=== PATIENT | male | born 1955 | race Caucasian/White ===

== ENCOUNTER → 2016-09-02 | Outpatient (CLI) | payer BC ==
[2016-09-02 16:01] LABS: Creatine Kinase MB 0.5 ng/mL (0.0-2.4); Troponin I <0.012 ng/mL (0.000-0.034)
== END | disposition home or self-care (01) ==
LOC: LABWHC1 15:05
PROVIDERS: ATTEND Physician Assistant
DX: M54.2 Cervicalgia (principal)
CPT/HCPCS: 36415; 82550; 82553; 84484

== ENCOUNTER 2016-10-06 09:53 | Day surgery (SDC) | payer BC ==
[~2016-10-06 09:53] MED LIST: SODIUM CHLORIDE 0.9% 1,000 ML IV SCH
[2016-10-06 11:02] VITALS: BP 151/75; PULSE 66; RESP 16; TEMP 98
--- NOTE | 2016-10-06 15:31 | P.PCN ---
Preoperative Diagnosis: Twelve-lead ECG report Sinus bradycardia at 46 beats a minute, mildly prolonged WI interval, incomplete right bundle branch block with a narrow QRS no ST segment abnormalities normal QT interval Tilt table test procedure Baseline blood pressure 145/77 mmHg heart rate in the 50s patient was tilted upright at an angle of 70 per protocol and there was no change in his heart rate and blood pressure no evidence for neurocardiogenic syncope or dysautonomia Impression Normal heart rate and blood pressure response to upright tilting Postoperative Diagnosis: Procedure(s) Performed: Implants: Anesthesia: none Indications for Procedure: Operative Findings: Description of Procedure:
== END 2016-10-06 15:12 | disposition home or self-care (01) ==
LOC: CATHEP 09:53
PROVIDERS: ATTEND Internal Medicine Clinical Cardiac Electrophysiology
DX: I45.19 Other right bundle-branch block (principal); R00.1 Bradycardia, unspecified; G90.3 Multi-system degeneration of the autonomic nervous system; I10 Essential (primary) hypertension; E78.5 Hyperlipidemia, unspecified; Z82.49 Family history of ischemic heart disease and other diseases of the circulatory system; Z87.891 Personal history of nicotine dependence; Z79.82 Long term (current) use of aspirin; Z79.899 Other long term (current) drug therapy

== ENCOUNTER → 2018-01-26 | Outpatient (CLI) | payer BC | END | disposition home or self-care (01) | LOC: LABWHC1 14:56 | PROVIDERS: ATTEND Nurse Practitioner Adult Health | DX: E78.5 Hyperlipidemia, unspecified (principal) | CPT/HCPCS: 36415; 83721 ==

== ENCOUNTER → 2022-08-22 | Outpatient (CLI) | payer MEDICARE ==
[2022-08-22 16:35] LABS: ALT 34 U/L (10-49); AST 26 U/L (14-35); BUN/Creat Ratio 20.15 Ratio (12.00-20.00); Blood Urea Nitrogen 26.2 mg/dL (9.0-27.0); Calcium 10.2 mg/dL (8.7-10.3); Carbon Dioxide 28.2 mmol/L (21.6-31.8); Chloride 100 mmol/L (96-109); Chol/HDL Ratio 3.68 Ratio; Glucose 123 mg/dL (70-110); LDL Cholesterol,Calculated 66.6 mg/dL (0.0-131.0); Potassium 4.4 mmol/L (3.5-5.5); Sodium 140 mmol/L (135-145)
== END | disposition home or self-care (01) ==
LOC: LABWHC1 09:12
PROVIDERS: ATTEND Internal Medicine Interventional Cardiology
DX: N18.9 Chronic kidney disease, unspecified (principal); E78.2 Mixed hyperlipidemia
CPT/HCPCS: 36415; 80048; 80061; 84450; 84460

== ENCOUNTER → 2023-08-31 | Outpatient (CLI) | payer MEDICARE ==
[2023-08-31 15:59] LABS: ALT 20 U/L (10-49); AST 20 U/L (14-35); Albumin 4.5 g/dL (3.8-4.9); Albumin/Globulin Ratio 2.05 Ratio (1.60-3.17); Alkaline Phosphatase 93 U/L (41-126); Bilirubin, Conjugated <0.20 mg/dL (0.20-0.40); Bilirubin,Unconjugated >0.20 mg/dL (0.20-1.00); Globulin 2.2 g/dL (1.6-3.3); Total Bilirubin 0.4 mg/dL (0.3-1.2); Total Protein 6.7 g/dL (6.2-8.2)
--- NOTE | 2023-09-01 22:01 | CT ---
EXAMINATION TYPE: CT chest wo con DATE OF EXAM: 08/31/2023 COMPARISON: None HISTORY: recently diagnosed with kidney ca CT DLP: 526.60 mGycm, Automated exposure control for dose reduction was used. CONTRAST: Performed injected with 0 mL of Isovue 300. TECHNIQUE: Axial images were obtained at 5 mm thick sections. Reconstructed images are reviewed on [email or web address] computer in the coronal plane. FINDINGS: Portion of the thyroid visualized is normal. Spiculated densities are in the right apex, series 4 image 14. This extends towards the left suprahil ar region. Some irregular pleural thickening may be in the posterior medial right upper lung field. S eries 4 image 30. This may be adjacent to some pleural calcification at this level No enlarged mediastinal or hilar adenopathy is evident. The ascending aorta diameter at the level o f the main pulmonary artery is 3.8 cm. The main pulmonary artery diameter at the bifurcation is 2.9 cm. Coronary artery calcifications present. Limited CT sections are obtained through the upper abdomen. Appears to be marked hydronephrosis of th e superior portion left kidney. Patient's reported renal cancer is not identified within the field-of -view. No suspicious expansile osseous lesions are evident. IMPRESSION: 1. There are couple of linear spiculated densities at the left apex and some irregular pleural increa sed markings in the posterior right upper lung field. Findings are nonspecific. Early metastasis coto jonathan is not excluded.
== END | disposition home or self-care (01) ==
LOC: RADCTMAIN 09:03
PROVIDERS: ATTEND Urology
DX: C68.9 Malignant neoplasm of urinary organ, unspecified (principal)
CPT/HCPCS: 71250; 80076

== ENCOUNTER → 2023-09-10 | Outpatient (CLI) | payer MEDICARE ==
--- NOTE | 2023-09-14 18:10 | PE ---
EXAMINATION TYPE: PET CT fusion skull to thigh DATE OF EXAM: 09/10/2023 COMPARISON: CT chest 08/31/2023 Prior PET/CT: None this location HISTORY: Bladder cancer TECHNIQUE: Following the intravenous administration of 10.23 mCi of F-18 FDG, whole body images are performed from the skull base to the midthigh. Images are reviewed on the computer in the coronal, a xial, and sagittal planes. Reconstructed rotating images are created on independent workstation and reviewed on the computer. A localization and attenuation correction CT is performed in conjunction with the PET scan. DLP: 909.77 mGycm SCAN: Initial Blood glucose: 109 mg/dL Average Mediastinum SUV: 3.01 Average Liver SUV: 3.42 FINDINGS: NECK: No suspicious uptake THORAX: No abnormal uptake ABDOMEN: There is a focus of uptake in the periaortic region, image 168, SUV 19.86. This does not aurelia ear to correlate with the dilated ureter and may be a metastatic lymph node. PELVIS: May be a left iliac chain lymph node image 216, SUV 9.48. Some uptake is within the distal le ft ureter. Excretion not clearly identified. A metastatic lesion within the distal ureter could be co nsidered. This may be normal radiotracer from excretion. Urinary bladder fills normally with excreted radiotracer. No filling defect is identified. OSSEOUS STRUCTURES: There may be some mild uptake along the left C2-3 facets. This could be inflammat ory. SUV 6.6, image 35. LOCALIZATION CT: Prostate may have mild prominence. Mild diffuse wall thickening smooth urinary bladd er. COMPARISON: The linear areas of uptake within the lung apices do not have elevated radiotracer. Size however somewhat small in early metastasis may not have sufficient radiotracer. Monitoring is recomme nded IMPRESSION: 1. There is a focus of radiotracer within the periaortic region suspected to be a metastatic lymph no de. 2. Additional focus of uptake may be within the distal left ureter. Normal excretion however could no t be excluded but may be less likely given delayed excretion on the left. 3. Linear areas within the lung apices not suspicious based on the PET/CT. However, early neoplasm wo uld be difficult to exclude an monitoring is recommended. #4 left iliac chain metastatic lymph node n ot excluded
== END | disposition home or self-care (01) ==
LOC: RADPETMAIN 12:11
PROVIDERS: ATTEND Urology
DX: C67.9 Malignant neoplasm of bladder, unspecified (principal)
CPT/HCPCS: 78815; A9552

== ENCOUNTER 2023-10-12 13:05 | Day surgery (SDC) | payer MEDICARE ==
[~2023-10-12 13:05] MED LIST changes: +HEPARIN SODIUM 1,000 UN/ML (10ML VL) ONE; +HEPARIN SODIUM,PORCINE 10,000 UNIT/ML 1 ML VIAL ONE; +LIDOCAINE 1% INJ 10MG/ML (20 ML MDV) ONE; +MIDAZOLAM 2 MG/2 ML VIAL ONE; +SODIUM CHLORIDE 0.9% 1,000 ML BAG ONE; -SODIUM CHLORIDE 0.9% 1,000 ML IV SCH; +VERAPAMIL 2.5 MG/ML 2 ML AMP ONE
[2023-10-12] MEDS: IOPAMIDOL-370 200ML BTL INJ ONE (13:14)
--- NOTE | 2023-11-09 10:46 | CC ---
CARDIAC CATHETERIZATION REPORT PROCEDURES PERFORMED: 1. Selective right and left coronary angiogram. 2. Left heart catheterization. 3. Ultrasound-guided access to the right radial artery. INDICATION: Chest discomfort, concerning for angina. COMPLICATIONS: None. LEVEL OF SEDATION: Moderate, with sedation length of 10 minutes. 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 The right radial artery was cannulated using micropuncture technique under ultrasound guidance. The micropuncture wire passed easily, then I placed a 6-Indonesian 11 cm sheath at the right radial artery. After that, we gave the patient 2 mg of verapamil intra- arterial and 5000 units of heparin intravenous. Selective right and left coronary angiogram performed using JR4 and JL3.5 catheter and left heart catheterization was performed using 5-Indonesian pigtail catheter. The procedure was completed with no complication. SELECTIVE CORONARY ANGIOGRAM: 1. The right coronary artery is a large-caliber vessel and is a dominant vessel with mild to moderate disease only. 2. The left main has mild disease only and calcified left main. 3. The left circumflex is a large caliber vessel, nondominant vessel and appeared to be angiographically normal. 4. The LAD has mild disease only. Otherwise, no high-grade stenosis was identified. CONCLUSION: 1. Vyvc-ie-xliuroem nonobstructive coronary artery disease. 2. Calcified right and left coronary system. 3. Normal left-sided filling pressure. POSTPROCEDURE MANAGEMENT: Medical treatment and follow up with the patient. MMODL / IJN: [id number] /
== END 2023-10-12 16:54 | disposition home or self-care (01) ==
LOC: CATHCVL 13:05
PROVIDERS: ATTEND Internal Medicine Interventional Cardiology
DX: R06.02 Shortness of breath
CPT/HCPCS: 93458

== ENCOUNTER → 2024-01-14 | Outpatient (CLI) | payer MEDICARE ==
--- NOTE | 2024-01-15 15:13 | PE ---
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 Images are reviewed on the computer in the coronal, a xial, and sagittal planes. Reconstructed rotating images are created on independent workstation and reviewed on the computer. A non-contrast CT is performed in conjunction with the PET scan. Glucose level 137 mg/dL CT DLP: 1049.63 mGycm, Automated exposure control for dose reduction was used. COMPARISON: CT 08/31/2023, PET/CT 09/10/2023, MRI: None FINDINGS: Mediastinal SUV mean is 2.8. Hepatic parenchyma SUV mean is 3.7. SKULL BASE AND NECK: No suspicious radiotracer activity. CHEST, MEDIASTINUM, AND HILAR REGION: No suspicious radiotracer activity. ABDOMEN AND PELVIS: Mildly decreased size of left iliac chain lymph node measuring 1.6 cm, previously measured up to 2.1 cm. The measures maximum SUV of 11.0, previously 14.3. Decreased size of spiculated metastatic soft tissue lesion within the right lower quadrant mesentery measuring 2.1 cm, previously measured up to 2.6 cm. Demonstrated a max SUV of 3.0, previously 13.0. Decreased size of left para-aortic lymph node measuring now 1.0 cm, previously 1.6 cm. Demonstrated m aximum SUV of 2.5, previously 23.7. Previously seen focal FDG uptake within the distal left ureter has decreased now with a maximum SUV o f 4.1, previously 17.3. MUSCULOSKELETAL STRUCTURES: No suspicious radiotracer activity. Diffuse osseous uptake likely related to posttreatment change. OTHER CT: Bilateral aphakia. Bilateral carotid bulb calcifications. Retropharyngeal course of the luz ateral common carotid arteries. Mild atherosclerotic calcification of the aorta and its branches. Mil d coronary arterial calcifications. Minimal bilateral gynecomastia with right greater than left. Subc entimeter hyperdense focus within the left hepatic dome which is too small characterize but likely re presents a cyst. Similar severe left hydroureteronephrosis without obstructing calculus identified. C oarse prostate calcifications. Couple of sigmoid diverticula without evidence for acute diverticuliti s. Multilevel degenerative changes of visualized spine. Pseudoarticulation of the left L5 transverse process with the sacrum. Levoscoliotic curvature of the thoracolumbar spine. Stable linear scarring w ithin the right lung apex. Additional stable subpleural atelectasis versus scarring within the right lower lobe. IMPRESSION: Positive response to therapy with decreased size and FDG activity of periaortic and left iliac lymph nodes. Decreased size and FDG activity of right lower quadrant mesenteric metastatic soft tissue lesi on. Additionally there is decreased FDG activity within the distal left ureter as suspected ureteral cancer. No new sites of suspicious FDG activity. [facility], , 01/15/2024 3:10 PM
== END | disposition home or self-care (01) ==
LOC: RADPETMAIN 08:53
PROVIDERS: ATTEND Internal Medicine Hematology & Oncology
DX: C66.2 Malignant neoplasm of left ureter (principal); H27.03 Aphakia, bilateral; I70.0 Atherosclerosis of aorta
CPT/HCPCS: 78815; A9552

== ENCOUNTER → 2024-05-26 | Outpatient (CLI) | payer MEDICARE ==
--- NOTE | 2024-05-28 15:12 | PE ---
EXAMINATION TYPE: PET CT fusion skull to thigh DATE OF EXAM: 05/26/2024 CLINICAL INDICATION:Male, 68 years old with history of C66.2 Bladder ca; TECHNIQUE: Following the intravenous administration of 11.54 mCi of F-18 FDG, whole body images are performed from the skull base to the midthigh. Images are reviewed on the computer in the coronal, axial, and sagittal planes. Reconstructed rotating images are created on independent workstation and reviewed on the computer. A non-contrast CT is performed in conjunction with the PET scan. Glucose level 125 mg/dL CT DLP: 883.13 mGycm, Automated exposure control for dose reduction was used. COMPARISON: CT 08/31/2023, PET/CT 01/14/2024, 09/10/2023, MRI: None FINDINGS: Mediastinal SUV mean is 2.6. Hepatic parenchyma SUV mean is 3.3. SKULL BASE AND NECK: No suspicious radiotracer activity. CHEST, MEDIASTINUM, AND HILAR REGION: No suspicious radiotracer activity. ABDOMEN AND PELVIS: Increase size of left periaortic lymph node measuring 1.2 cm. This now demonstrates FDG activity with a maximum SUV of 15.0. Previously measured 1.0 cm with a maximum SUV of 2.5. Postsurgical changes from left nephrectomy with low-level FDG activity in the surgical bed with a max SUV of 4.6. Post surgical changes of the bowel from right hemicolectomy. Post surgical changes of previously demonstrated right lower quadrant soft tissue mass which is no lo nger visualized. No suspicious FDG activity in this region above background. Mild FDG activity along the anterior midline abdominal wall incision site likely related to inflammat ion. Demonstrates a max SUV of 6.4 which is most pronounced along the inferior aspect. Redemonstration of left iliac chain lymph node measuring 1.6 cm with decreased FDG activity now measu ring 6.0. Previously 11.0, 14.3. MUSCULOSKELETAL STRUCTURES: No suspicious radiotracer activity. OTHER CT: Bilateral aphakia. Bilateral carotid bulb calcifications. Retropharyngeal course of the luz ateral common carotid arteries. Mild atherosclerotic calcification of the aorta and its branches. Mil d coronary arterial calcifications. Minimal bilateral gynecomastia with right greater than left. Stab le linear scarring within the right apex. Subcentimeter hypodense focus within the left hepatic dome which is too small characterize but likely represents a cyst. Left hepatic lobe dome 1.7 cm cyst. Pos t surgical changes from left nephrectomy with some residual stranding and fluid. Surgical changes of the colon from right hemicolectomy with anastomosis identified. Some residual stranding identified wi thin the surrounding mesentery. Coarse prostate calcifications. Couple of sigmoid diverticula without evidence for acute diverticulitis. Multilevel degenerative changes of visualized spine. Pseudoarticu lation of the left L5 transverse process with the sacrum. Levoscoliotic curvature of the thoracolumba r spine. Postsurgical changes in the midline anterior abdominal wall with scarring. IMPRESSION: 1. Postsurgical changes with only mild FDG activity in the surgical bed likely related to postsurgic al change, however there is mild increased size of left periaortic lymph node now demonstrating suspi cious FDG activity highly concerning for residual disease/metastasis. 2. Decreased FDG activity within the mildly enlarged left iliac chain lymph node. [facility], , 05/28/2024 3:09 PM
== END | disposition home or self-care (01) ==
LOC: RADPETMAIN 08:26
PROVIDERS: ATTEND Internal Medicine Hematology & Oncology
DX: C66.2 Malignant neoplasm of left ureter (principal); R59.9 Enlarged lymph nodes, unspecified; Z98.890 Other specified postprocedural states
CPT/HCPCS: 78815; A9552

== ENCOUNTER → 2024-06-10 | Day surgery (SDC) | payer MEDICARE ==
[~2024-06-10] MED LIST changes: +GLYCOPYRROLATE 0.2 MG/ML 2 ML VIAL ONE; -HEPARIN SODIUM 1,000 UN/ML (10ML VL) ONE; -HEPARIN SODIUM,PORCINE 10,000 UNIT/ML 1 ML VIAL ONE; +HYDROmorphone 0.5 MG/0.5 ML SYRINGE IVP PRN; +KETAMINE HCL IN 0.9 % NACL 50 MG/5 ML SYRINGE ONE; -LIDOCAINE 1% INJ 10MG/ML (20 ML MDV) ONE; +MIDAZOLAM 2 MG/2 ML VIAL IV PRN; +PROPOFOL 10 MG/ML 20 ML VIAL IV ONE; +Pre Op ABX Message 1 EACH MISC MISCELLANE ONE; -SODIUM CHLORIDE 0.9% 1,000 ML BAG ONE; -VERAPAMIL 2.5 MG/ML 2 ML AMP ONE; +fentaNYL (PF) 50 MCG/ML 2 ML AMP ONE
[2024-06-10 10:20] VITALS: TEMP 98.2
[2024-06-10] MEDS: ONDANSETRON 4 MG/2 ML VIAL IVP ONE (10:40)
[2024-06-10] MEDS: LACTATED RINGERS 1,000 ML IV ONE (10:40)
[2024-06-10] MEDS: DEXAMETHASONE SOD PHOSPHATE 4 MG/ML 1 ML VIAL IV ONE (10:40)
[2024-06-10] MEDS: LACTATED RINGERS 1,000 ML IV SCH (10:40)
[2024-06-10] MEDS: ACETAMINOPHEN TAB 500 MG TAB PO PRN (10:43)
[2024-06-10] MEDS: HEPARIN SODIUM,PORCINE 5,000 UNIT/ML 1 ML VIAL SQ PRN (10:43)
[2024-06-10 11:00] LABS: Basophils # (A) 0.03 10*3/uL (0.00-0.10); Basophils % (A) 0.7 %; Eosinophils # (A) 0.13 10*3/uL (0.04-0.35); Eosinophils % (A) 3.2 %; HCT 35.2 % (39.6-50.0); HGB 11.3 g/dL (13.0-17.0); Lymphocytes # (A) 1.16 10*3/uL (0.90-5.00); Lymphocytes % (A) 28.8 %; MCH 25.7 pg (27.0-32.0); MCHC 32.1 g/dL (32.0-37.0); Mean Platelet Volume 9.2 fL (9.5-12.2); Monocytes # (A) 0.39 10*3/uL (0.20-1.00); Monocytes % (A) 9.7 %; Neutrophils # (A) 2.31 10*3/uL (1.80-7.70); Neutrophils % (A) 57.4 %; Platelet Count 237 10*3/uL (140-440); RDW 18.6 % (11.5-14.5); WBC 4.03 10*3/uL (4.50-10.00)
[2024-06-10 11:08] LABS: African American GFR (CKD) 60 (>60 ml/min/1.73 sqM); Anion Gap 10 mmol/L; Blood Urea Nitrogen 24 mg/dL (9-20); Calcium 9.8 mg/dL (8.4-10.2); Carbon Dioxide 25 mmol/L (22-30); Chloride 103 mmol/L (98-107); Glucose 119 mg/dL (74-99); Non-African American GFR(CKD) 52 (>60 ml/min/1.73 sqM); Potassium 4.7 mmol/L (3.5-5.1); Sodium 138 mmol/L (137-145)
--- NOTE | 2024-06-10 11:18 | P.GSHP ---
History of Present Illness H&P Date: 06/10/24 Chief Complaint: History of left ureteral cancer This is a 59-year-old male who was recently diagnosed with left ureteral cancer. Patient presents today for Port-A-Cath placement. 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 History of Any Multi-Drug Resistant Organisms: None Reported Past Surgical History: Bowel Resection, Heart Catheterization Additional Past Surgical History / Comment(s): COLONOSCOPIES. luz cataract surg; 2/3 colon removed Mar 2024; left kidney & ureter removed Feb 2024 Past Anesthesia/Blood Transfusion Reactions: No Reported Reaction Smoking Status: Former smoker - Past Family History Father Family Medical History: Myocardial Infarction ([place]) Mother Family Medical History: Cancer Additional Family Medical History / Comment(s): colon ca; maternal grandma, aunt & uncle all hx colon ca Sister(s) Family Medical History: Cancer Additional Family Medical History / Comment(s): colon ca Medications and Allergies Home Medications Medication Instructions Recorded Confirmed Type amLODIPine [Norvasc] 5 mg PO DAILY 06/08/24 06/10/24 History Allergies Allergy/AdvReac Type Severity Reaction Status Date / Time No Known Allergies Allergy Verified 06/10/24 10:57 Surgical - Exam Vital Signs Temp Pulse Resp BP Pulse Ox 98.2 F 70 16 153/79 96 06/10/24 10:16 06/10/24 10:16 06/10/24 10:16 06/10/24 10:16 06/10/24 10:16 - General well developed, well nourished, no distress - Eyes PERRL - ENT normal pinna - Neck no masses - Respiratory normal expansion - Cardiovascular Rhythm: regular - Abdomen Abdomen: soft, non tender Results - Labs 06/10/24 10:41 06/10/24 10:41 Abnormal Lab Results - Last 24 Hours (Table) 06/10/24 06/10/24 Range/Units 10:41 10:41 WBC 4.03 L (4.50-10.00) 10*3/uL Hgb 11.3 L (13.0-17.0) g/dL Hct 35.2 L (39.6-50.0) % MCH 25.7 L (27.0-32.0) pg MPV 9.2 L (9.5-12.2) fL BUN 24 H (9-20) mg/dL Creatinine 1.39 H (0.66-1.25) mg/dL Glucose 119 H (74-99) mg/dL Diabetes panel 06/10/24 Range/Units 10:41 Sodium 138 (137-145) mmol/L Potassium 4.7 (3.5-5.1) mmol/L Chloride 103 (98-107) mmol/L Carbon Dioxide 25 (22-30) mmol/L BUN 24 H (9-20) mg/dL Creatinine 1.39 H (0.66-1.25) mg/dL Glucose 119 H (74-99) mg/dL Calcium 9.8 (8.4-10.2) mg/dL Calcium panel 06/10/24 Range/Units 10:41 Calcium 9.8 (8.4-10.2) mg/dL Pituitary panel 06/10/24 Range/Units 10:41 Sodium 138 (137-145) mmol/L Potassium 4.7 (3.5-5.1) mmol/L Chloride 103 (98-107) mmol/L Carbon Dioxide 25 (22-30) mmol/L BUN 24 H (9-20) mg/dL Creatinine 1.39 H (0.66-1.25) mg/dL Glucose 119 H (74-99) mg/dL Calcium 9.8 (8.4-10.2) mg/dL Adrenal panel 06/10/24 Range/Units 10:41 Sodium 138 (137-145) mmol/L Potassium 4.7 (3.5-5.1) mmol/L Chloride 103 (98-107) mmol/L Carbon Dioxide 25 (22-30) mmol/L BUN 24 H (9-20) mg/dL Creatinine 1.39 H (0.66-1.25) mg/dL Glucose 119 H (74-99) mg/dL Calcium 9.8 (8.4-10.2) mg/dL Assessment and Plan Plan: History of ureteral cancer. Will perform Port-A-Cath placement.
[2024-06-10] MEDS: IV FLUID CONTINUATION 1,000 ML with ceFAZolin 2,000 MG IV ONE (11:34)
[2024-06-10] MEDS: BUPIVACAINE (PF) 0.25% 30 ML VIAL SQ ONE (11:43)
[2024-06-10] MEDS: IOPAMIDOL-370 100ML BTL MISCELLANE ONE (11:44)
[2024-06-10] MEDS: SODIUM CHLORIDE 0.9% 1,000 ML BAG IRRIGATION ONE (11:45)
--- NOTE | 2024-06-10 12:41 | XR ---
EXAMINATION TYPE: XR chest 1V portable DATE OF EXAM: 06/10/2024 12:36 PM COMPARISON: None CLINICAL INDICATION: Male, 68 years old with history of Right subclavian Port-A-Cath, , FINDINGS: Heart upper limits of normal in size. Mild patchy interstitial density bilaterally. Right anterior ch est wall is injection port with subclavian access and catheter tip at the upper to mid SVC. No apprec iable pneumothorax. No pleural effusion. IMPRESSION: Scattered patchy interstitial opacities bilaterally. Correlate for any symptoms of interstitial pneum onitis or atypical pneumonia. [facility], Workstation: [id number], 06/10/2024 12:38 PM
--- NOTE | 2024-06-10 12:50 | P.OP ---
Date of Procedure: 06/10/24 Preoperative Diagnosis: Left ureteral cancer Postoperative Diagnosis: Left ureteral cancer Procedure(s) Performed: Insertion of right subclavian Port-A-Cath Anesthesia: MAC Surgeon: Simone Griffith Estimated Blood Loss (ml): 5 Pathology: none sent Condition: stable Disposition: PACU Description of Procedure: The patient was placed on the operating table in the supine position. The patient received IV sedation. The patient's chest was prepped and draped in the usual sterile fashion. A roll had been placed between the shoulder blades in a longitudinal fashion. After prepping and draping the skin was anesthetized 1% local Xylocaine. And then using the Seldinger technique the subclavian vein was cannulated. A wire was placed into the vein and fluoroscopy position the wire at the atrial caval junction. Next the dilator sheath was placed over top the wire and the wire was withdrawn. The catheter was positioned at the atriocaval position. The catheter was placed through the sheath after the dilator was withdrawn. The sheath was then withdrawn. Position of the catheter was confirmed with fluoroscopy. The Port-A-Cath was connected to the catheter. The Port-A-Cath was flushed with saline and then heparinized saline. The skin was closed interrupted 3-0 Monocryl suture. Dermabond was applied. Patient tolerated procedure well and was sent to recovery room stable condition.
[2024-06-10 12:51] VITALS: BP 135/82; PULSE 70; RESP 16
--- NOTE | 2024-06-10 18:32 | FL ---
EXAMINATION TYPE: FL guided central line placemt DATE OF EXAM: 06/10/2024 FLUOROSCOPY 9 SEC FL .[id number] DAP dose 2 images are submitted during procedural fluoroscopy for right anterior chest wall injection port elba cement. [facility], , 06/10/2024 6:30 PM
== END | disposition home or self-care (01) ==
LOC: OR 09:47
PROVIDERS: ATTEND Surgery
DX: C66.2 Malignant neoplasm of left ureter (principal); I10 Essential (primary) hypertension; E78.5 Hyperlipidemia, unspecified; Z79.899 Other long term (current) drug therapy; Z87.891 Personal history of nicotine dependence; Z85.038 Personal history of other malignant neoplasm of large intestine; Z92.21 Personal history of antineoplastic chemotherapy; Z97.4 Presence of external hearing-aid; Z90.5 Acquired absence of kidney
CPT/HCPCS: 36561; 80048; 85025; 77001; 71045; C1788; J2250; J1644; J1100; J2405; J0690; J3010; J1642; J2704; Q9967; J0665; J1596

== ENCOUNTER → 2024-09-15 | Outpatient (CLI) | payer MEDICARE ==
[2024-09-15 12:10] LABS: African American GFR (CKD) 65 (>60 ml/min/1.73 sqM); Blood Urea Nitrogen 27 mg/dL (9-20); Non-African American GFR(CKD) 56 (>60 ml/min/1.73 sqM)
--- NOTE | 2024-09-15 14:40 | CT ---
EXAMINATION TYPE: CT ChestAbdPelvis w con CT DLP: 195 mGycm, Automated exposure control for dose reduction was used. DATE OF EXAM: 09/15/2024 1:33 PM COMPARISON: PET/CT 05/26/2024, 01/14/2024, 09/10/2023, CT chest 08/31/2023 CLINICAL INDICATION:Male, 68 years old with history of C66.2 MALIGNANT NEOPLASM OF LEFT URETER; PHH, hx of malignant neoplasm of lt ureter Technique: Multiple axial images of the chest, abdomen, and pelvis were obtained following the intrav enous administration of 100 mL Isovue-300. Oral contrast was administered. Two-dimensional coronal an d sagittal reconstructions were obtained. Findings: CHEST: LUNGS/ PLEURA: No pleural effusion, pneumothorax, focal consolidation. Stable linear scarring within the right lung apex. No suspicious pulmonary nodule or mass. AIRWAY: Patent and unremarkable.. HEART: Size within normal limits.Small aortic valvular calcifications. No pericardial effusion. Mild coronary artery calcifications present. MEDIASTINUM: No evidence of adenopathy. VASCULATURE: No aortic aneurysm. Right anterior chest wall IJ approach Mediport catheter with distal tip terminating in the high SVC. Mild atherosclerotic calcification of the aorta and its branches. MUSCULOSKELETAL: No acute osseous abnormalities. No aggressive osseous lesion. Levoscoliotic curvatur e of the thoracolumbar spine. Multilevel anterior osteophytosis of the lower thoracic spine. SOFT TISSUES/LYMPH NODES: Bilateral gynecomastia with right greater than left. LOWER NECK: No significant findings. ABDOMEN: ABDOMEN LIVER: Multiple subcentimeter hypoattenuating structures are demonstrated throughout the liver, which are too small to accurately characterize but statistically likely to represent simple hepatic cysts GALLBLADDER AND BILE DUCTS: Unremarkable. PANCREAS: Unremarkable. SPLEEN: Unremarkable. ADRENAL GLANDS: Right adrenal gland is unremarkable. Left adrenal gland is not well-visualized and ma y be surgical absent. KIDNEYS AND URETERS: Postsurgical changes from left nephrectomy. Increased fluid within the surgical bed. No increasing soft tissue within the surgical bed. Right kidney appears unremarkable without eduardo dence of suspicious lesion, hydronephrosis or calculus. Contrast administered within the right collec ting system on the delayed phase. PELVIS BLADDER: Unremarkable REPRODUCTIVE: Coarse calcifications of the prostate gland are identified. ABDOMEN & PELVIS STOMACH AND BOWEL: Stomach and duodenum are unremarkable. Postsurgical changes from right hemicolecto my. Enteric contrast reaches the splenic flexure. No focal bowel wall thickening and surrounding infl ammatory changes identified. No evidence of bowel obstruction. PERITONEUM: No evidence of pneumoperitoneum or free fluid. VASCULATURE: Moderate atherosclerotic calcifications are present throughout the abdominal aorta and i ts branches. No abdominal aortic aneurysm. MUSCULOSKELETAL: No acute osseous abnormalities. No aggressive osseous lesion. Levoscoliotic curvatur e of the thoracolumbar spine. Grade 1 retrolisthesis of L3 on L4. Multilevel degenerative disc diseas e of the lumbar spine. L5 left transverse process pseudoarticulation with the left hemisacrum. LYMPH NODES: Decreased size of left para-aortic lymph node now measuring 1 cm, previously 1.2 cm (ser ies 3, image 71). Decreased size of left iliac chain lymph node measuring 0.8 cm short axis, previous ly 1 cm (series 3, image 103). Demonstrated FDG activity on prior PET/CT. No new lymphadenopathy. SOFT TISSUE/ABDOMINAL WALL: Postsurgical changes in the midline anterior wall. No evidence for hernia or fluid collection. IMPRESSION: Post surgical changes from left nephrectomy with decreasing fluid and stranding in the surgical bed. No new suspicious lesion within the surgical bed. Positive response to treatment with decrease size o f left para-aortic and left iliac chain lymph nodes which demonstrated FDG activity on prior PET/CT. No new adenopathy. No evidence for metastatic disease within the chest. [facility], , 09/15/2024 2:37 PM
== END | disposition home or self-care (01) ==
LOC: RADCTMAIN 11:14
PROVIDERS: ATTEND Internal Medicine Hematology & Oncology
DX: C66.2 Malignant neoplasm of left ureter (principal); E78.5 Hyperlipidemia, unspecified; I10 Essential (primary) hypertension; Z71.3 Dietary counseling and surveillance; Z90.5 Acquired absence of kidney
CPT/HCPCS: 82565; 84520; 71260; 74177; 36415; Q9967